=== PATIENT | female | born 1995 | race Hispanic/Latino ===

== ENCOUNTER 2018-07-23 21:19 | Inpatient (IN) | payer SELFPAY ==
--- NOTE | 2018-07-23 21:27 | ED PDOC ---
Arrival/HPI - General Historian: Patient - History of Present Illness Narrative History of Present Illness (Text): 07/23/18 21:24 23 year old female, whose past medical history includes depression and bipolar disorder, who presents to the ED transferred from [facility] for psychiatric a dmission. Patient was medically cleared for transfer and admitted to [facility] for depression and bipolar disorder by Dr. Newell, [facility] psychiatrist. Patient denies any somatic complaints. Symptom Onset: Gradual Symptom Course: Unchanged Activities at Onset: Light Context: Other (transferred from [facility]) Past Medical History - Provider Review Nursing Documentation Reviewed: Yes Family/Social History - Physician Review Nursing Documentation Reviewed: Yes Family/Social History: Unknown Family HX Allergies/Home Meds Allergies/Adverse Reactions: Allergies codeine Allergy (Verified 07/23/18 21:29) ITCHING Home Medications: Home Meds Medication Instructions Recorded Confirmed No Known Home Med 07/23/18 07/23/18 Review of Systems - Physician Review All systems were reviewed & negative as marked: Yes - Review of Systems Constitutional: absent: Fevers Respiratory: absent: SOB, Cough Cardiovascular: absent: Chest Pain Gastrointestinal: absent: Abdominal Pain, Diarrhea, Nausea, Vomiting Genitourinary Female: absent: Dysuria, Frequency, Hematuria, Urine Output Changes Musculoskeletal: absent: Back Pain, Neck Pain Skin: absent: Rash Neurological: absent: Headache, Dizziness Psychiatric: Depression Physical Exam Vital Signs Reviewed: Yes Temperature: Afebrile Blood Pressure: Normal Pulse: Regular Respiratory Rate: Normal Appearance: Positive for: Well-Appearing, Non-Toxic, Comfortable Pain Distress: None Mental Status: Positive for: Alert and Oriented X 3 - Systems Exam Head: Present: Atraumatic, Normocephalic Pupils: Present: PERRL Extroacular Muscles: Present: EOMI Conjunctiva: Present: Normal Mouth: Present: Moist Mucous Membranes Neck: Present: Normal Range of Motion Respiratory/Chest: Present: Clear to Auscultation, Good Air Exchange. No: Respiratory Distress, Accessory Muscle Use Cardiovascular: Present: Regular Rate and Rhythm, Normal S1, S2. No: Murmurs Abdomen: No: Tenderness, Distention, Peritoneal Signs Back: Present: Normal Inspection Upper Extremity: Present: Normal Inspection. No: Cyanosis, Edema Lower Extremity: Present: Normal Inspection. No: Edema Neurological: Present: GCS=15, CN II-XII Intact, Speech Normal Skin: Present: Warm, Dry, Normal Color. No: Rashes Psychiatric: Present: Alert, Oriented x 3, Normal Insight, Normal Concentration, Depressed Mood Medical Decision Making ED Course and Treatment: 07/23/18 21:24 Impression: 23 year old female transferred from [facility] for psych admisison. Plan: -- Admit to [facility] Progress Notes: Pt medically cleared for transfer and psychiatric admission at [facility]. Pt accepted for admission to [facility] for depression and bipolar disorder by Dr. Newell. Pt agreeable with plan. Pt. will be admitted to Dr. Solange Ramirez as Dr. Newell doesn't admit. - PA / BOARD OF DIRECTORS / Resident Statement MD/DO has reviewed & agrees with the documentation as recorded. - Scribe Statement The provider has reviewed the documentation as recorded by the Scribe Lisa Rice Provider Scribe Attestation: All medical record entries made by the Scribe were at my direction and personally dictated by me. I have reviewed the chart and agree that the record accurately reflects my personal performance of the history, physical exam, medical decision making, and the department course for this patient. I have also personally directed, reviewed, and agree with the discharge instructions and disposition. Disposition/Present on Arrival - Present on Arrival Any Indicators Present on Arrival: No History of DVT/PE: No History of Uncontrolled Diabetes: No Urinary Catheter: No History of Decub. Ulcer: No - Disposition Have Diagnosis and Disposition been Completed?: Yes Diagnosis: Depression, Bipolar disorder Disposition: HOSPITALIZED Disposition Time: 21:39 Patient Plan: Admission Condition: STABLE
[2018-07-23 21:32] VITALS: O2SAT 100
[2018-07-23] MEDS ORDERED: Magnesium Hydroxide Susp 30 ml UD PO PRN (22:58)
[2018-07-23] MEDS ORDERED: Alum-Mag Hydrox-Simethicone Susp (30 mL) PO PRN (22:58)
--- NOTE | 2018-07-24 05:12 | PCM.BM ---
<Nickolas Ramsey - Last Filed: 07/24/18 05:08> Treatment Plan Problems - Problems identified on initial assessmt High Risk,Suicide Date Initiated: 07/23/18 Time Initiated: 23:00 Assessment reference: NA Status: Monitor Priority: 3 Ineffective coping Date Initiated: 07/23/18 Time Initiated: 23:00 Assessment reference: NA Status: Active Priority: 2 Altered sleep pattern Date Initiated: 07/23/18 Time Initiated: 23:00 Assessment reference: NA Status: Active Priority: 1 Treatment assets and liabiliti Patient Assests: cooperative, ADL independent, good support system Patient Liabilities: financial problems, relationship conflicts - Milieu Protocol Maintain good personal hygiene: daily Encourage regular showers, daily Remind patient to perform daily oral care, daily Assist patient to perform ADL's Conduct patient checks and document Observation sheet: Q15 minutes Maintain personal safety: daily Educate patient to report safety concerns to staff, daily Monitor environment for contraband/sharps Medication safety: Monitor for expected outcome, potential side effects: daily, Assess barriers to learning: daily, Assess readiness for medication education: daily Family Contact Family involvement: Family/SO is involved Family contact: Patient agrees to contact Family contact name: Demetrius Bland) Family contacted how many times per week?: 1 - Goals for Treatment Patient goals for treatment: Help me with the anxiety Discharge/Continuing Care - Education Needs Education Needs: Patient Medication, Patient Coping Skills, Patient Anger Management skills - Discharge Discharge Criteria: Free of Suicidal thoughts, Normal sleep pattern <Galilea Blackburn - Last Filed: 07/24/18 11:54> Family Contact Family contact: Patient agrees to contact <Solange Sutherland - Last Filed: 07/24/18 14:59> - Diagnosis (1) Depression Status: Acute Interventions: 07/24/18 14:59 Psychoeducation Psychopharmacology/adjustment of medications as needed/ monitoring possible side effects Evaluate pt on daily basis Compliance with medications and follow up appointments Suicide and homicide risk assessment and prevention Relapse prevention Reduction of symptoms Improve functional status Family involvement As outpatient: cognitive behavioral therapy
[2018-07-24 08:09] LABS: HDL CHOLESTEROL 62 mg/dL (29-60)
[2018-07-24 08:19] LABS: LDL CHOLESTEROL 78 mg/dL (0-129)
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
--- NOTE | 2018-07-25 14:53 | PCM.PYCHPN ---
Psychiatric Progress Note - Psychiatric Progress Note Patient seen today, length of contact: 30min Patient Chief Complaint: "I am feeling very anxious, but I slept well though.." Problems Identified/Issues Discussed: Treatment plan, risk benefits alternatives of the medications, discharge planning. Medical Problems: See HPI Diagnostic Results: Lab Results 07/24/18 07:30: TSH 3rd Generation 2.06 07/24/18 07:30: Hemoglobin A1c 4.8 07/24/18 07:30: Triglycerides 101, Cholesterol 160, LDL Cholesterol Direct 78, HDL Cholesterol 62 H Vital Signs Temp Pulse Resp BP Pulse Ox 07/25/18 07:30 98.0 F 69 20 102/62 07/24/18 15:56 118 H 128/88 07/24/18 07:00 97.6 F 106 H 18 106/72 07/24/18 04:17 19 07/23/18 22:37 98.0 F 18 117/77 100 07/23/18 21:32 97.7 F 85 17 113/76 100 DSM 5 Symptoms Update: shortly pt is 23 year old female with a reported history of eating disorder, patient denied any formal history of mental illness, patient denies history of being admitted to the psychiatric inpatient unit, initially patient was brought to [place] status post overdose on benzodiazepines and Flexeril as well as alcohol, patient declined admission to the psychiatric inpatient unit, was screened by [facility], was transferred for involuntary commitment screening but in the emergency room at [facility] patient was willing to get treatment, was transferred to the psychiatric inpatient unit under voluntary status. Patient was seen and examined today next to the nursing station. Patient presented anxious, reported that she slept better. Patient appears to be depressed, but denied to be, patient reported the main concern is anxiety right now. Patient denied feeling hopeless, helpless, denied feeling depressed. Patient reported herfather is going to, and visit her today, this copy writer asked SW to obtain collateral info. So far patient tolerates medications well, no side effects observed or reported, aims 0, no EPS. As per staff patient is visible in the unit, no aggression, no agitation. Impression: DSM 5 Diagnosis: Adjustment disorder with depressed and anxious mood As per history of anorexia nervosa to be under control (pt does not appear to be malnourished BMI 21.3) Rule out major depressive disorder As per history of alcohol abuse Medication Change: Yes (Paxil increased) Medical Record Reviewed: Yes Consults ordered or reviewed: Patient was seen by medical team at [facility]. Mental Status Examination - Cognitive Function Orientation: Person, Place, Situation, Time Memory: Intact Attention: WNL Concentration: WNL Association: WNL Fund of Knowledge: WNL - Mood Mood: Anxious - Affect Affect: Constricted - Formal Thought Process Formal Thought Process: No Impairment - Suicidal Ideation Suicidal Ideation: No - Homicidal Ideation Homicidal Ideation: No Goal/Treatment Plan - Goal/Treatment Plan Need for Continued Stay: Remain at risks for inpatient hospitalization, Severe depression anxiety, Discharge may exacerbated symptoms, Severe functional impairment Progress Toward Problem(s) and Goals/Treatment Plan: Milieu/structure/supportive therapy SW consultation for discharge plan and social issues Med management Paxil 20milligrams at the nighttime for depression and anxiety Klonopin 0.5 mg twice a day as needed for anxiety Sonata 10 mg at the nighttime as needed for insomnia Family involvement Follow up on labs Will monitor closely Pt was educated about risk/benefits and alternatives of medications, coping strategies (safety plan, suicide prevention), relapse prevention, importance of follow up with psychiatrist and therapist, stay away from drugs/alcohol/smoking Estimated Date of D/C: 07/27/18
--- NOTE | 2018-07-26 15:40 | CP.PCM.CON ---
<Sukhi Oconnor - Last Filed: 07/26/18 16:43> History of Present Illness - History of Present Illness History of Present Illness: IM Consult Note for Hospitalist Service TRI Curtis DO PGY-3 Consulted for: Back pain, hx of back injury This is a 23 yo F with PMH of Depression, Bipolar Disorder, Exercise- induced rhabdomyolysis, and L5/S1 hernia s/p keyhole procedure 9 weeks prior who presented from [facility] after reported unintentional polysubstance overdose (valium, flexeril, advil, alcohol). IM was consulted for patient's back pain. At time of exam, patient was utilizing Ice Pack on affected area. She reports that she wasn't actually experiencing pain, but that area left-lateral and inferior to her surgical scar (L5/S1 procedure) feels unusual. Only able to describe as ache. Denies stabbing pain, radiating pain, loss of gait/ambulation, bowel/bladder incontinence, saddle anesthesia, focal weakness. As per Psych staff, had been ambulating around the unit without issue. Reports anxiety regarding her back and not being able to follow up with physical therapy (sc heduled to follow for another 3 weeks as per pt). Denies fevers, chills, neck stiffness, nausea, emesis, diarrhea, dysuria. 12-system ROS reviewed and negative, except as above. PMH: as above PSH: keyhole procedure for disc slippage at L5/S1 (May 2018) Fam Hx: unknown Soc Hx: denies illicits, tobacco, alcohol PMD: could not remember name, but follows one in [place] Review of Systems - Review of Systems All systems: reviewed and no additional remarkable complaints except (as per HPI) Past Patient History - Infectious Disease Hx of Infectious Diseases: None - Past Social History Smoking Status: Never Smoked - CARDIAC Hx Cardiac Disorders: No - PSYCHIATRIC Hx Substance Use: No - SURGICAL HISTORY Other/Comment: back surgery - ANESTHESIA Hx Anesthesia: No Meds Home Medications: Home Medication List Medication Instructions Recorded Confirmed Type clonazePAM [Klonopin] 0.5 mg PO DAILY #14 tab 07/26/18 Rx Cyclobenzaprine [Flexeril] 5 mg PO TID PRN #10 tab 07/28/18 Rx PARoxetine [Paxil] 30 mg PO HS #14 tab 05/17/19 Rx Zolpidem [Ambien] 5 mg PO HS PRN #14 tab 07/28/18 Rx Allergies/Adverse Reactions: Allergies Allergy/AdvReac Type Severity Reaction Status Date / Time codeine Allergy ITCHING Verified 07/23/18 21:29 - Medications Medications: Current Medications Acetaminophen (Tylenol 325mg Tab) 650 mg PO Q6 PRN PRN Reason: Pain, Mild (1-3) Last Admin: 07/26/18 13:56 Dose: 650 mg Al Hydrox/Mg Hydrox/Simethicone (Maalox Plus 30 Ml) 30 ml PO DAILY PRN PRN Reason: Dyspepsia Clonazepam (Klonopin) 0.5 mg PO BID PRN; Protocol PRN Reason: Anxiety Last Admin: 07/26/18 14:59 Dose: 0.5 mg Cyclobenzaprine HCl (Flexeril) 5 mg PO TID PRN PRN Reason: Muscle spasm Ibuprofen (Motrin Tab) 400 mg PO Q6H PRN PRN Reason: Pain, moderate (4-7) Magnesium Hydroxide (Milk Of Magnesia) 30 ml PO DAILY PRN PRN Reason: Constipation Paroxetine HCl (Paxil) 20 mg PO HS ELANA Last Admin: 07/25/18 21:13 Dose: 20 mg Zaleplon (Sonata) 10 mg PO HS PRN PRN Reason: Insomnia Last Admin: 07/25/18 21:13 Dose: 10 mg Physical Exam - Constitutional Appears: Non-toxic, No Acute Distress - Head Exam Head Exam: ATRAUMATIC, NORMAL INSPECTION, NORMOCEPHALIC - Eye Exam Eye Exam: EOMI, Normal appearance. absent: Conjunctival injection, Scleral icterus Pupil Exam: absent: Irregular, Unequal - ENT Exam ENT Exam: Mucous Membranes Moist - Neck Exam Neck exam: Positive for: Full Rom. Negative for: Lymphadenopathy, Thyromegaly - Respiratory Exam Respiratory Exam: Clear to Auscultation Bilateral, NORMAL BREATHING PATTERN. absent: Accessory Muscle Use, Chest Wall Tenderness, Decreased Breath Sounds, Rales, Rhonchi, Wheezes - Cardiovascular Exam Cardiovascular Exam: REGULAR RHYTHM, RRR, +S1, +S2. absent: Bradycardia, Tachycardia, Irregular Rhythm, JVD, +S4 - GI/Abdominal Exam GI & Abdominal Exam: Normal Bowel Sounds, Soft. absent: Diminished Bowel Sounds, Distended, Firm, Hyperactive Bowel Sounds, Hypoactive Bowel Sounds, Rigid, Tenderness - Extremities Exam Extremities exam: Positive for: normal capillary refill, normal inspection, pedal pulses present. Negative for: calf tenderness, joint swelling, pedal ed akosua, tenderness - Back Exam Back exam: absent: CVA tenderness (L), CVA tenderness (R) Additional comments: patient reports abnormal sensation/ache at left lateral lower lumbar/quadratus lumborum region, cold to touch (patient using ice pack prior to arrival) no palpable muscle spasm appreciated - Neurological Exam Additional comments: awake and alert, moving all extremities spontaneously, following all commands appropriately, normal gait - Psychiatric Exam Additional comments: intermittently anxious/tearful - Skin Skin Exam: Dry, Intact, Normal Color, Warm (except for ice-pack region in back, as described above) Results - Vital Signs Recent Vital Signs: Last Vital Signs Temp 97.6 F 07/26/18 14:56 Pulse 71 07/26/18 07:17 Resp 20 07/26/18 07:17 BP 98/64 L 07/26/18 07:17 Pulse Ox 100 07/23/18 22:37 Assessment & Plan - Assessment and Plan (Free Text) Assessment: This is a 23 yo F with PMH of Depression, Bipolar Disorder, Exercise- induced rhabdomyolysis, and L5/S1 hernia s/p keyhole procedure 9 weeks prior who presented from [facility] after reported unintentional polysubstance overdose (valium, flexeril, advil, alcohol). IM was consulted for patient's back pain. Plan: 1) Depression/Bipolar 2) Chronic Back pain 3) Polysubstance overdose -Management of psych issues as per Psych -Given recent OD of multiple substance, including muscle relaxer, would only utilize Ice packs (max for 15 minutes at a time), Motrin, and Acetaminophen -Labs from [place] reviewed, Cr wnl, so safe for NSAIDs -No further intervention from medicine standpoint at this time, will sign off. Please call with any questions. Reviewed and discussed with attending, Dr. Hui <Bre Hui - Last Filed: 07/28/18 16:16> Results - Vital Signs Recent Vital Signs: Last Vital Signs Temp 98.1 F 07/27/18 07:33 Pulse 89 07/27/18 16:05 Resp 20 07/27/18 07:33 BP 123/80 07/27/18 16:05 Pulse Ox 100 05/12/19 22:37 Attending/Attestation - Attestation I have personally seen and examined this patient.: Yes I have fully participated in the care of the patient.: Yes I have reviewed all pertinent clinical information: Yes Notes (Text): 07/28/18 16:11 Medical record note made by the resident after discussion with my direction and input after the patient was personally seen and examined by me. I have reviewed the chart and agree that the record accurately reflects by personal performance of the history, physical exam, data review, and medical decision-making, in the course for the patient. I have also personally directed the plan of care. 23 yo F with PMH of Depression, Bipolar Disorder, , and L5/S1 hernia s/p keyhole procedure 9 weeks prior who presented from [facility] after reported unintentional polysubstance overdose (valium, flexeril, advil, alcohol) was seen due to c/o back pain.Patient is ambulatory, does not has any focal neuro deficit. Patient physical examination is benign.Athis will recommend PRN Acetaminopehen and Ibuprofen for pain.Flexeril can be used on PRN basis. Patient is stable at base line.We will sign off. Please call us back if any question
--- NOTE | 2018-07-26 16:00 | PCM.PYCHPN ---
Psychiatric Progress Note - Psychiatric Progress Note Patient seen today, length of contact: 30min Patient Chief Complaint: "I feel very anxious, I had difficulty to sleep" Problems Identified/Issues Discussed: Treatment plan, risk benefits alternatives of the medications, discharge planning. Medical Problems: See HPI Diagnostic Results: Lab Results 07/24/18 07:30: TSH 3rd Generation 2.06 07/24/18 07:30: Hemoglobin A1c 4.8 07/24/18 07:30: Triglycerides 101, Cholesterol 160, LDL Cholesterol Direct 78, HDL Cholesterol 62 H Vital Signs Temp Pulse Resp BP Pulse Ox 07/25/18 07:30 98.0 F 69 20 102/62 07/24/18 15:56 118 H 128/88 07/24/18 07:00 97.6 F 106 H 18 106/72 07/24/18 04:17 19 07/23/18 22:37 98.0 F 18 117/77 100 07/23/18 21:32 97.7 F 85 17 113/76 100 DSM 5 Symptoms Update: shortly pt is 23 year old female with a reported history of eating disorder, patient denied any formal history of mental illness, patient denies history of being admitted to the psychiatric inpatient unit, initially patient was brought to [place] status post overdose on benzodiazepines and Flexeril as well as alcohol, patient declined admission to the psychiatric inpatient unit, was screened by [facility], was transferred for involuntary commitment screening but in the emergency room at [facility] patient was willing to get treatment, was transferred to the psychiatric inpatient unit under voluntary status. Patient was seen and examined today at the treatment team meeting room, patient presented with good personal hygiene, patient reported that she feels anxious, still has difficulty to fall asleep and to stay asleep. Patient reported that she is anxious because "I am not able to exercise", patient reports that when she is at home at her regular routine life she feels less anxious. Patient denied feeling hopeless, helpless, denied feeling depressed. Patient was visited by her father, collaterals were obtained by social services, as per father patient pose no imminent danger to self or others but has history of alcohol use disorder, patient does not tolerate alcohol well, and father's impression was that patient overdosed only because she was under the influence of alcohol. So far patient tolerates medications well, no side effects observed or reported, aims 0, no EPS. As per staff patient is visible in the unit, no aggression, no agitation. Impression: DSM 5 Diagnosis: Adjustment disorder with depressed and anxious mood As per history of anorexia nervosa to be under control (pt does not appear to be malnourished BMI 21.3) Rule out major depressive disorder As per history of alcohol abuse Medication Change: No Medical Record Reviewed: Yes Mental Status Examination - Cognitive Function Orientation: Person, Place, Situation, Time Memory: Intact Attention: WNL Concentration: WNL Association: WNL Fund of Knowledge: WNL - Mood Mood: Anxious - Affect Affect: Constricted - Formal Thought Process Formal Thought Process: No Impairment - Suicidal Ideation Suicidal Ideation: No - Homicidal Ideation Homicidal Ideation: No Goal/Treatment Plan - Goal/Treatment Plan Need for Continued Stay: Remain at risks for inpatient hospitalization, Severe depression anxiety, Discharge may exacerbated symptoms, Severe functional impairment Progress Toward Problem(s) and Goals/Treatment Plan: Milieu/structure/supportive therapy SW consultation for discharge plan and social issues Med management Paxil 20milligrams at the nighttime for depression and anxiety Klonopin 0.5 mg twice a day as needed for anxiety Sonata 10 mg at the nighttime as needed for insomnia Family involvement Follow up on labs Will monitor closely Pt was educated about risk/benefits and alternatives of medications, coping strategies (safety plan, suicide prevention), relapse prevention, importance of follow up with psychiatrist and therapist, stay away from drugs/alcohol/smoking Estimated Date of D/C: 07/27/18
[2018-07-27 07:34] VITALS: RESP 20; TEMP 98.1
--- NOTE | 2018-07-27 15:53 | PCM.PYCHPN ---
Psychiatric Progress Note - Psychiatric Progress Note Patient seen today, length of contact: 30min Patient Chief Complaint: "I feel very anxious, I had a panic attack, I am not ready to leave..." Problems Identified/Issues Discussed: Treatment plan, risk benefits alternatives of the medications, discharge planning. Relaxation technique, breathing exercises. Medical Problems: See HPI Diagnostic Results: Lab Results 07/24/18 07:30: TSH 3rd Generation 2.06 07/24/18 07:30: Hemoglobin A1c 4.8 07/24/18 07:30: Triglycerides 101, Cholesterol 160, LDL Cholesterol Direct 78, HDL Cholesterol 62 H Vital Signs Temp Pulse Resp BP Pulse Ox 07/25/18 07:30 98.0 F 69 20 102/62 07/24/18 15:56 118 H 128/88 07/24/18 07:00 97.6 F 106 H 18 106/72 07/24/18 04:17 19 07/23/18 22:37 98.0 F 18 117/77 100 07/23/18 21:32 97.7 F 85 17 113/76 100 DSM 5 Symptoms Update: shortly pt is 23 year old female with a reported history of eating disorder, patient denied any formal history of mental illness, patient denies history of being admitted to the psychiatric inpatient unit, initially patient was brought to [place] status post overdose on benzodiazepines and Flexeril as well as alcohol, patient declined admission to the psychiatric inpatient unit, was screened by [facility], was transferred for involuntary commitment screening but in the emergency room at [facility] patient was willing to get treatment, was transferred to the psychiatric inpatient unit under voluntary status. Patient was seen and examined today at the treatment team meeting room, patient presented with good personal hygiene, patient reported that she feels anxious, "I feel panicky, I didn't sleep, I am not ready to go.." Patient reports feeling "hopeless about the situation" Patient was visited by her father, collaterals were obtained by bilingual social worker, as per father patient pose no imminent danger to self or others but has history of alcohol use disorder, patient does not tolerate alcohol well, and father's impression was that patient overdosed only because she was under the influence of alcohol. So far patient tolerates medications well, no side effects observed or reported, aims 0, no EPS. As per staff patient is visible in the unit, no aggression, no agitation. Impression: DSM 5 Diagnosis: Adjustment disorder with depressed and anxious mood As per history of anorexia nervosa to be under control (pt does not appear to be malnourished BMI 21.3) Rule out major depressive disorder As per history of alcohol abuse Medication Change: Yes (Paxil increased, Ambien started) Medical Record Reviewed: Yes Mental Status Examination - Cognitive Function Orientation: Person, Place, Situation, Time Memory: Intact Attention: WNL Concentration: WNL Association: WNL Fund of Knowledge: WNL - Mood Mood: Depressed, Anxious - Affect Affect: Constricted - Formal Thought Process Formal Thought Process: No Impairment - Suicidal Ideation Suicidal Ideation: No - Homicidal Ideation Homicidal Ideation: No Goal/Treatment Plan - Goal/Treatment Plan Need for Continued Stay: Remain at risks for inpatient hospitalization, Severe depression anxiety, Discharge may exacerbated symptoms, Severe functional impairment Progress Toward Problem(s) and Goals/Treatment Plan: Milieu/structure/supportive therapy SW consultation for discharge plan and social issues Med management Paxil 30milligrams at the nighttime for depression and anxiety Klonopin 0.5 mg twice a day as needed for anxiety Sonata discontinued Ambien 5 mg as needed for insomnia Family involvement Follow up on labs Will monitor closely Pt was educated about risk/benefits and alternatives of medications, coping strategies (safety plan, suicide prevention), relapse prevention, importance of follow up with psychiatrist and therapist, stay away from drugs/alcohol/smoking Estimated Date of D/C: 07/28/18
[2018-07-27 16:07] VITALS: BP 123/80; PULSE 89
--- NOTE | 2018-07-28 15:33 | PCM.PYCHDC ---
Mental Status Examination - Mental Status Examination Orientation: Person, Place, Situation, Time Memory: Intact Mood: Neutral Affect: Constricted (But reactive and mood congruent) Speech: Appropriate Attention: WNL Concentration: WNL Association: WNL Fund of Knowledge: WNL Formal Thought Process: No Impairment Description of patient's judgement and insight: Pt has improved insight into mental and medical illness, pt was compliant with medications and unit rules and regulations, pt was attending group therapy sessions, was calm, cooperative, socially appropriate, no behavioral incidents, no agitation, no aggression. Psychotic Thoughts and Behaviors: Pt denied v/a/t hallucinations, denied paranoid ideations, pt does not appear to be psychotic, and thought process is goal directed. Suicidal Ideation: No Current Homicidal Ideation?: No Plan: pt adamantly denied thoughts of harming self or others denied intent or plan. Discharge Plan - Discharge Note Reason for Hospitalization: Patient was transferred from [facility] for voluntary admission, s/p overdose on valium. Psychiatric History (includes Medical, Family, Personal Hx): History of depression and anxiety, eating disorder Laboratory Data: Lab Results 07/24/18 07:30: TSH 3rd Generation 2.06 07/24/18 07:30: Hemoglobin A1c 4.8 07/24/18 07:30: Triglycerides 101, Cholesterol 160, LDL Cholesterol Direct 78, HDL Cholesterol 62 H Vital Signs Temp Pulse Resp BP Pulse Ox 07/27/18 16:05 89 123/80 07/27/18 07:33 98.1 F 63 20 121/84 07/26/18 15:51 97.6 F 07/26/18 15:00 91 H 17 126/85 07/26/18 14:56 97.6 F 07/26/18 13:56 97.2 F L 07/26/18 07:17 97.9 F 71 20 98/64 L 07/25/18 16:09 74 109/73 07/25/18 07:30 98.0 F 69 20 102/62 07/24/18 15:56 118 H 128/88 07/24/18 07:00 97.6 F 106 H 18 106/72 07/24/18 04:17 19 07/23/18 22:37 98.0 F 18 117/77 100 07/23/18 21:32 97.7 F 85 17 113/76 100 Consultations:: List each consultation separately and include: 1. Reason for request. 2. Findings. 3. Follow-up Consultations: Patient was seen by medical team at [place]. Please see notes for more detailed information Patient also was seen by medical team here in [place], please see consultation note for more detailed information. Summary of Hospital Course include:: 1. Description of specific treatment plan utilized for patients during their course of treatmen. 2. Summarize the time- course for resolution of acute symptoms and/or regressed behaviors. 3. Describe issues identified and worked on during hospitalization. 4. Describe medication utilized. 5. Describe medical problems identified and treated. 6. Reassessment of suicide risk Summary of Hospital Course: shortly pt is 23 year old female with a reported history of eating disorder, patient denied any formal history of mental illness, patient denies history of being admitted to the psychiatric inpatient unit, initially patient was brought to [place] status post overdose on benzodiazepines and Flexeril as well as alcohol, patient declined admission to the psychiatric inpatient unit, was screened by [facility], was transferred for involuntary commitment screening but in the emergency room at [facility] patient was willing to get treatment, was transferred to the psychiatric inpatient unit under voluntary status. Please see admission note for more detailed information. Patient was stabilized on the following medications: Paxil 30 mg the nighttime for depression and anxiety which was slowly titrated up Klonopin as needed for anxiety Patient was on Sonata but still has insomnia, that is why Ambien was initiated 5 mg at the nighttime Patient tolerated medications well, no side effects observed or reported, aims 0, no EPS. Collaterals were obtained from patient's father, please see social media marketing manager notes from with patient. Patient improved significantly, anxiety is better controlled, patient had improvement with her appetite and sleep. Patient was attending groups, socializing with others, no agitation or aggression, patient reached maximum effect from this acute hospitalization, deemed ready for discharge At the time of discharge patient was considered to pose no imminent danger to self or others, will be f/u with outpatient psychiatrist to [facility]. Patient's father came to the hospital to pick her up. information about follow up appointment, time and address provided to the pt, (see SW note for more detailed information). It is a patient responsibility to follow up with outpatient clinic, PMD as well as specialists In case patient will need to obtain results of studies pending at discharge, patient was provided with contact information of Psychiatric Inpatient unit [phone] as well as Medical Record Department [phone], as well as [facility] Methods Examiner team [phone]. Patient denied smoking, denied chronic alcohol consumption, denies using drugs pt was provided with prescriptions see medication reconciliation form Pt was educated about safety plan in case of worsening of symptoms or in case of suicidal or homicidal ideation call 911 or go to the nearest ER, also was educated to take meds as prescribed and stay away from drugs, pt verbalized understanding. Lab Results 07/24/18 07:30: TSH 3rd Generation 2.06 07/24/18 07:30: Hemoglobin A1c 4.8 07/24/18 07:30: Triglycerides 101, Cholesterol 160, LDL Cholesterol Direct 78, HDL Cholesterol 62 H Vital Signs Temp Pulse Resp BP Pulse Ox 07/24/18 07:00 97.6 F 106 H 18 106/72 07/24/18 04:17 19 07/23/18 22:37 98.0 F 18 117/77 100 07/23/18 21:32 97.7 F 85 17 113/76 100 - Diagnosis (1) Depression Current Visit: Yes Status: Chronic Priority: Medium - Final Diagnosis (DSM 5) Condition upon Discharge: STABLE Disposition: HOME/ ROUTINE Follow-up Treatment Plan: [facility] outpatient program Prescriptions/Medication Reconciliation: clonazePAM [Klonopin] 0.5 mg PO DAILY #14 tab Cyclobenzaprine [Flexeril] 5 mg PO TID PRN #10 tab PRN Reason: Muscle Spasm PARoxetine [Paxil] 30 mg PO HS #14 tab Zolpidem [Ambien] 5 mg PO HS PRN #14 tab PRN Reason: Insomnia - Tobacco Cessation Tobacco Use Status for the last 30 days: Non User Tobacco Use Treatment Practical Counseling Provided: No Reason for not providing: denied smoking Tobacco Use Treatment FDA-Approved Cessation Medication Provided: No Smoking Cessation Prescription was given: No If no, reason for not providing: denied smoking - Alcohol or Substance Abuse Does the patient have an Alcohol or Substance Abuse Disorder: Yes A prescription for an FDA-approved medication for alcohol and drug dependence was given to the patient at discharge: No If no,reason for not providing: not actively using alcohol - Antipsychotic Medications Pt discharged on 2 or more routine antipsychotic medications: No
== END 2018-07-28 15:28 | disposition home or self-care (01) | DRG 881 ==
LOC: ED 21:19 → ERH 21:29 → PSYC 22:25
PROVIDERS: ADMIT Psychiatry & Neurology Psychiatry; ATTEND Psychiatry & Neurology Psychiatry
DX: F32.9 Major depressive disorder, single episode, unspecified (principal); F50.00 Anorexia nervosa, unspecified; F43.23 Adjustment disorder with mixed anxiety and depressed mood; G47.00 Insomnia, unspecified; Z68.21 Body mass index [BMI] 21.0-21.9, adult; F10.10 Alcohol abuse, uncomplicated